=== PATIENT | female | born 1980 | race Two or more races ===

== ENCOUNTER 2019-05-12 14:01 | Emergency (ER) | payer SELFPAY ==
[~2019-05-12] VITALS: Ht 160 cm; Wt 52.2 kg
[2019-05-12 14:43] VITALS: BP 106/76
[2019-05-12] MEDS ORDERED: HYDROcodone/APAP 10/325 1 TAB TABLET PO ONE (15:45)
--- NOTE | 2019-05-12 16:26 | RAD ---
PA and lateral chest x-ray HISTORY: Chest pain. FINDINGS: Heart size normal. Mediastinal silhouette is normal. Indistinct left greater than right densities along the perihilar lungs more so left likely related to the presence of a pectus excavatum. Indistinct lingular infiltrate is a less likely consideration given no corresponding opacity on the lateral view. No pneumothorax or pleural effusions. IMPRESSION: Asymmetric densities at the perihilar lungs more so on the left likely an artifact due to pectus excavatum as described above. Electronically signed by: Dmitriy Sotelo MD (05/12/2019 4:23 PM) [facility] [place]
[2019-05-12] MEDS ORDERED: CYCL10TA2 PO (16:48)
[2019-05-12] MEDS ORDERED: TRAM50TA PO (16:48)
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
== END 2019-05-12 17:03 | disposition home or self-care (01) ==
LOC: ER 14:01
DX: S06.0X0A Concussion without loss of consciousness, initial encounter (principal); M54.5 Low back pain; M54.2 Cervicalgia; M54.6 Pain in thoracic spine; R10.30 Lower abdominal pain, unspecified; R07.89 Other chest pain; V43.62XA Car passenger injured in collision with other type car in traffic accident, initial encounter; Y93.89 Activity, other specified; Y92.410 Unspecified street and highway as the place of occurrence of the external cause; Y99.8 Other external cause status
CPT/HCPCS: 71046; 99284